=== PATIENT | male | born 1950 | race Caucasian/White ===

== ENCOUNTER 2018-03-02 18:44 | Emergency (ER) | payer MEDICARE, BC ==
[~2018-03-02] VITALS: Ht 167.6 cm; Wt 87.2 kg
[2018-03-02] MEDS ORDERED: LIDOcaine 1% 30ml preserv. free vial IJ ONE (21:50)
[2018-03-02 23:09] VITALS: BP 166/91
== END 2018-03-02 23:10 | disposition home or self-care (01) ==
LOC: ER 18:45
DX: S01.112A Laceration without foreign body of left eyelid and periocular area, initial encounter (principal); W22.8XXA Striking against or struck by other objects, initial encounter; Y93.89 Activity, other specified; Y92.89 Other specified places as the place of occurrence of the external cause; Y99.8 Other external cause status
CPT/HCPCS: 12013; 99283; A6255; A6449; J3490; 12014

== ENCOUNTER 2024-09-25 03:30 | Emergency (ER) | payer MEDICARE, BC ==
[~2024-09-25] VITALS: Ht 165.1 cm; Wt 89.2 kg
[~2024-09-25 03:30] MED LIST: ACET-1995 PO; ALOE VERA PO; ASPI-611 PO; CIDE300T3 PO; CINN500C15 PO; CLON0.1T PO; GLIM2TAB6 PO; METF-900 PO; PIOG30TA71 PO; TELM40TA8 PO; [UNRECOGNIZED DRUG - OTHER] PO
[2024-09-25] MEDS ORDERED: ALBU8HFA PO (06:44)
[2024-09-25] MEDS ORDERED: FLUT1BLS13 INH (06:44)
[2024-09-25] MEDS ORDERED: AZIT500T9 PO (06:44)
== END 2024-09-25 07:19 | disposition home or self-care (01) ==
LOC: ER 03:31
DX: J20.9 Acute bronchitis, unspecified (principal); Z79.82 Long term (current) use of aspirin; Z79.52 Long term (current) use of systemic steroids; Z79.84 Long term (current) use of oral hypoglycemic drugs; Z79.899 Other long term (current) drug therapy; Z72.89 Other problems related to lifestyle; Z20.822 Contact with and (suspected) exposure to COVID-19
CPT/HCPCS: 36415; 71046; 87502; 87503; 87811; 99284